=== PATIENT | female | born 1930 | race American Indian/Alaskan Native ===

== ENCOUNTER 2017-07-01 09:49 | Emergency (ER) | payer MEDICARE ==
[2017-07-01 10:36] VITALS: BP 121/59
--- NOTE | 2017-07-01 10:56 | Emergency Department Report ---
ED General Adult HPI - General Chief complaint: Back Pain/Injury Stated complaint: LEFT SIDED PAIN Time Seen by Provider: 07/01/17 10:40 Source: patient, EMS Mode of arrival: Stretcher Limitations: Physical Limitation - History of Present Illness Initial comments: A 87-year-old female here for evaluation of left-sided chest pain and in the abdomen she thinks it also goes into her pelvis. Patient is poor historian and family unavailable for interview patient apparently came in for a pain to the left chest into the back into the lower abdomen she denies any nausea vomiting denies any fever questionable shortness of breath no other complaints she is having a little bit of left-sided back pain denies headache denies stiff neck denies fever no Numbness Weakness or Tingling, She Is Alert and Oriented and Verbal but Is Unable to Give Any Further History She Denies Any Trauma Denies Any Syncope. -: Gradual, days(s) Location: chest, abdomen, left Radiation: non-radiation Severity scale (0 -10): 10 Quality: sharp Consistency: intermittent Worsens with: none Associated Symptoms: denies other symptoms. denies: diaphoresis, fever/chills, headaches, loss of appetite, malaise, nausea/vomiting, rash, seizure, shortness of breath, syncope, weakness - Related Data Home Medications Medication Instructions Recorded Confirmed Last Taken ALPRAZolam [Xanax TAB] 2 mg PO QID PRN 06/25/16 06/25/16 06/24/16 21:00 Aricept 10 mg PO HS 06/25/16 06/25/16 06/24/16 21:00 Levothyroxine [Synthroid] 75 mcg PO QAM 06/25/16 06/25/16 06/25/16 06:37 Nortriptyline [Pamelor] 25 mg PO BID 06/25/16 06/25/16 06/25/16 09:00 Previous Rx's Medication Instructions Recorded Last Taken Type Benzonatate [Tessalon Perles] 100 mg PO Q8HR #20 capsule 06/27/16 Unknown Rx HYDROcodone/APAP 10-325 [[place] 1 each PO QID PRN #30 tablet 06/27/16 Unknown Rx 10-325 mg TAB] Ipratropium/Albuter (Nf) 2 puff IH QID #1 inha 06/27/16 Unknown Rx [Combivent (Nf)] Levofloxacin [Levaquin] 750 mg PO QDAY #4 tablet 06/27/16 Unknown Rx Lisinopril [Zestril TAB] 20 mg PO DAILY #60 tablet 06/27/16 Unknown Rx amLODIPine [Norvasc] 10 mg PO DAILY #30 tablet 06/27/16 Unknown Rx guaiFENesin/CODEINE [Robitussin AC] 10 ml PO Q4H PRN #1 bottle 06/27/16 Unknown Rx Ipratropium/Albuterol Sulfate 1 ampul IH Q8HR #90 ampul.neb 06/29/16 Unknown Rx [Duoneb 0.5 mg-3 mg/3 ml Soln] Ondansetron [Zofran Odt] 4 mg PO TID PRN #15 tab.rapdis 07/01/17 Unknown Rx Allergies Allergy/AdvReac Type Severity Reaction Status Date / Time codeine Allergy Rash Verified 10/21/13 09:50 morphine Allergy Rash Verified 10/21/13 09:50 Penicillins Allergy Rash Verified 10/21/13 09:50 Sulfa (Sulfonamide Allergy Rash Verified 10/21/13 09:50 Antibiotics) acetaminophen [From Tylenol] AdvReac Itching Verified 06/25/16 16:46 ED Review of Systems ROS: Stated complaint: LEFT SIDED PAIN Other details as noted in HPI Comment: All other systems reviewed and negative Constitutional: denies: diaphoresis, fever, malaise ENT: denies: dental pain, hearing loss, epistaxis Respiratory: denies: cough, orthopnea, shortness of breath, stridor, wheezing Cardiovascular: denies: palpitations, orthopnea, edema, syncope, paroxysmal nocturnal dyspnea Gastrointestinal: abdominal pain. denies: nausea, vomiting, diarrhea, constipation, hematemesis, melena, hematochezia Genitourinary: denies: hematuria, discharge Skin: denies: change in color, pruritus Neurological: denies: numbness, paresthesias, confusion, abnormal gait, vertigo ED Past Medical Hx - Past Medical History Hx Hypertension: Yes Additional medical history: hypothyroidism - Surgical History Additional Surgical History: bilat knee replacement. Rotator cuff repair. - Social History Smoking Status: Never Smoker - Medications Home Medications: Home Medications Medication Instructions Recorded Confirmed Last Taken Type ALPRAZolam [Xanax TAB] 2 mg PO QID PRN 06/25/16 06/25/16 06/24/16 21:00 History Aricept 10 mg PO HS 06/25/16 06/25/16 06/24/16 21:00 History Levothyroxine [Synthroid] 75 mcg PO QAM 06/25/16 06/25/16 06/25/16 06:37 History Nortriptyline [Pamelor] 25 mg PO BID 06/25/16 06/25/16 06/25/16 09:00 History Benzonatate [Tessalon Perles] 100 mg PO Q8HR #20 capsule 06/27/16 Unknown Rx HYDROcodone/APAP 10-325 [[place] 1 each PO QID PRN #30 tablet 06/27/16 Unknown Rx 10-325 mg TAB] Ipratropium/Albuter (Nf) 2 puff IH QID #1 inha 06/27/16 Unknown Rx [Combivent (Nf)] Levofloxacin [Levaquin] 750 mg PO QDAY #4 tablet 06/27/16 Unknown Rx Lisinopril [Zestril TAB] 20 mg PO DAILY #60 tablet 06/27/16 Unknown Rx amLODIPine [Norvasc] 10 mg PO DAILY #30 tablet 06/27/16 Unknown Rx guaiFENesin/CODEINE [Robitussin AC] 10 ml PO Q4H PRN #1 bottle 06/27/16 Unknown Rx Ipratropium/Albuterol Sulfate 1 ampul IH Q8HR #90 ampul.neb 06/29/16 Unknown Rx [Duoneb 0.5 mg-3 mg/3 ml Soln] Ondansetron [Zofran Odt] 4 mg PO TID PRN #15 tab.rapdis 07/01/17 Unknown Rx ED Physical Exam - General Limitations: Physical Limitation General appearance: alert, in no apparent distress - Head Head exam: Present: atraumatic, normocephalic - Eye Eye exam: Present: normal appearance, PERRL, EOMI - ENT ENT exam: Present: normal exam, normal orophraynx - Neck Neck exam: Present: normal inspection. Absent: tenderness, meningismus, full ROM, lymphadenopathy, thyromegaly - Respiratory Respiratory exam: Present: normal lung sounds bilaterally. Absent: respiratory distress, wheezes, rales, rhonchi, stridor, chest wall tenderness, accessory muscle use, decreased breath sounds, prolonged expiratory - Cardiovascular Cardiovascular Exam: Present: regular rate, normal rhythm, normal heart sounds - GI/Abdominal GI/Abdominal exam: Present: soft. Absent: distended, tenderness, guarding, rebound, rigid, mass, bruit, pulsatile mass - Extremities Exam Extremities exam: Present: normal inspection, normal capillary refill. Absent: tenderness, pedal edema, joint swelling, calf tenderness - Back Exam Back exam: Present: normal inspection, muscle spasm. Absent: vertebral tenderness - Neurological Exam Neurological exam: Present: alert, oriented X3, CN II-XII intact. Absent: motor sensory deficit ED Course Vital Signs 07/01/17 07/01/17 10:35 10:40 Temperature 97.5 F L Pulse Rate 75 Respiratory 19 19 Rate Blood Pressure 121/59 [Left] O2 Sat by Pulse 100 97 Oximetry - Reevaluation(s) Reevaluation #1: 07/01/17 14:09 Patient was sent to CT for further evaluation of chest pain and abdominal pain of her studies and urinalysis were obtained she is allergic to Tylenol however family relates that she takes [place] and Dilaudid at home ED Medical Decision Making - Lab Data Result diagrams: 07/01/17 10:55 07/01/17 11:01 - EKG Data -: EKG Interpreted by Me EKG shows normal: sinus rhythm, ST-T waves (no acuteST-T changes no evidence of ischemia) - Radiology Data Radiology results: report reviewed - Medical Decision Making Laboratory studies were negative TROPONIN CBC AND CHEMISTRY WERE UNREMARKABLE. URINALYSIS WAS ALSO NEGATIVE. CT ABDOMEN AND PELVIS AND CHEST DOES SHOW CHRONIC CHANGEw. atx and poss pulm htn but no pe or dissection, ekg no evidence ischemia and neg trop, SHE DOES HAVE A KIDNEY STONE (NO EVIDENCE OF PE OR DISSECTION) (SYMPTOMS ARE CONSISTENT WITH CHEST WALL PAIN AND POSSIBLE RENAL COLIC SHE IS SO FAR PAin free FOLLOW-UP SHE IS TOLERATING BY MOUTH SHE DOES HAVE PAIN MEDICINE AT HOME SHE WILL NEED SERIAL REGULAR DOCTOR IN 2 DAYS. WORSE Critical care attestation.: If time is entered above; I have spent that time in minutes in the direct care of this critically ill patient, excluding procedure time. ED Disposition Clinical Impression: Atypical chest pain, Chest wall pain, Kidney stone on left side Disposition: - TO HOME OR SELFCARE Is pt being admited?: No Condition: Stable Instructions: Chest Pain (ED), Kidney Stones (ED) Additional Instructions: Return immediately if new or alarming symptoms see your doctor in 2 days Take the medicine as directed take your pain medicine that she has at home Prescriptions: Ondansetron [Zofran Odt] 4 mg PO TID PRN #15 tab.rapdis PRN Reason: Vomiting Referrals: HARVEY MCQUEEN MD [Primary Care Provider] - 3-5 Days Time of Disposition: 14:16
[2017-07-01 11:17] LABS: Basophils % (Auto) 0.8 % (0.0-1.8); Hematocrit 41.9 % (30.3-42.9); Hemoglobin 13.7 gm/dl (10.1-14.3); Mean Corpuscular HGB Conc 33 % (30-34); Mean Corpuscular Hemoglobin 29 pg (28-32); Mean Corpuscular Volume 90 fl (79-97); Platelet Count 227 K/mm3 (140-440); Red Blood Count 4.68 M/mm3 (3.65-5.03); Red Cell Distribution Width 14.1 % (13.2-15.2)
[2017-07-01 11:31] LABS: Alanine Aminotransferase 8 units/L (7-56); Albumin 3.5 g/dL (3.9-5); Albumin/Globulin Ratio 1.2 %; Alkaline Phosphatase 105 units/L (35-129); Anion Gap 15 mmol/L; BUN/Creatinine Ratio 15; Blood Urea Nitrogen 12 mg/dL (7-17); Calcium 9.4 mg/dL (8.4-10.2); Carbon Dioxide 32 mmol/L (22-30); Chloride 99.5 mmol/L (98-107); Glucose 115 mg/dL (65-100); Potassium 3.5 mmol/L (3.6-5.0); Sodium 143 mmol/L (137-145); Total Protein 6.5 g/dL (6.3-8.2)
--- NOTE | 2017-07-01 12:38 | Cat Scan Report ---
FINAL REPORT EXAM: CT ABDOMEN PELVIS WO CON HISTORY: l side chest/abd pain TECHNIQUE: CT of the abdomen and pelvis without IV contrast. Coronal and sagittal reconstructed imaging provided. PRIORS: None currently available. FINDINGS: ABDOMEN: Chest findings discussed on the CT chest. Liver, stomach, pancreas, spleen, and adrenals are unremarkable. Layering density within the gallbladder may represent stones and or sludge. No wall thickening. Kidneys: Right kidney is unremarkable. No hydronephrosis. No nephroureteral stones. No obvious lesion. Left renal cyst in the mid to inferior pole measures 3.7 cm. 3.9 x 6.8 mm stone in the mid left kidney. No left hydronephrosis. No ureteral stones. IVC is intact. Mild aortic atherosclerotic disease. No aneurysm. No periaortic or retroperitoneal mass or adenopathy. [id number] stool is present throughout the colon. Sigmoid diverticulosis. No wall thickening or inflammatory changes. Terminal ilium is unremarkable. Appendix is not clearly identified. No pericecal inflammatory changes. Small bowel loops are unremarkable. No obstructive pattern. No free air. No free fluid. PELVIS: Uterus is not clearly identified and may be surgically removed or atrophic. Bladder is unremarkable. No wall thickening or stone. There is no pelvic mass or adenopathy. Inguinal regions are unremarkable. Bones: No suspicious osseous lesions on this limited examination of the skeleton. Metastatic disease better evaluated with bone scan. Degenerative changes are in the spine. Bridging osseous structures in the spine may be related to diffuse idiopathic skeletal hyperostosis or ankylosing spondylitis. IMPRESSION: Subtle layering density within the gallbladder may represent stones or sludge. No CT evidence for cholecystitis. Left renal cyst. Nonobstructing left renal stone.
--- NOTE | 2017-07-01 12:41 | Cat Scan Report ---
FINAL REPORT EXAM: CT CHEST W CON HISTORY: l side chest pain TECHNIQUE: CT of chest with IV contrast. Coronal and sagittal reconstructed images provided. PRIORS: None currently available. FINDINGS: No pneumothorax. No effusion. No consolidation. No endobronchial lesion. Mild linear scarring or discoid subsegmental atelectasis in the dependent portion of both lungs. Prominent main pulmonary artery suggests pulmonary hypertension or pulmonary vascular congestion. No aortic aneurysm. Heart size unremarkable. No pericardial effusion. Patient appears to be status post left thyroidectomy. Enlarged heterogeneous right thyroid gland identified. Right thyroid lobe nodule suspected. There is no axillary adenopathy. There is no hilar or mediastinal mass or adenopathy. Images of the esophagus are unremarkable. Abdomen findings discussed on the CT abdomen and pelvis. No suspicious osseous lesions on this limited examination of the skeleton. Metastatic disease better evaluated with bone scan. Degenerative changes are present in the spine. No displaced fracture is evident. IMPRESSION: Minimal scarring or discoid subsegmental atelectasis in the dependent portion of both lungs. Mildly prominent main pulmonary artery may represent pulmonary hypertension or pulmonary vascular congestion. Pulmonary hypertension favor. Enlarged heterogeneous thyroid gland with nodules. Patient appears to be status post left thyroidectomy.
[2017-07-01 13:04] LABS: Bilirubin,Urine NEG (Negative); Blood,Urine NEG (Negative); Ketones,Urine NEG (Negative); Leukocyte Esterase,Urine NEG (Negative); Nitrite,Urine NEG (Negative); Protein,Urine <15 mg/dL mg/dL (Negative); RBC,Urine < 1.0 /HPF (0.0-6.0)
== END 2017-07-01 14:58 | disposition home or self-care (01) ==
LOC: ED 09:49
DX: R07.89 Other chest pain (principal); N20.0 Calculus of kidney; I10 Essential (primary) hypertension; E03.9 Hypothyroidism, unspecified; Z88.5 Allergy status to narcotic agent; Z88.0 Allergy status to penicillin; Z88.1 Allergy status to other antibiotic agents; Z88.2 Allergy status to sulfonamides
CPT/HCPCS: 36415; 71260; 74176; 80053; 81001; 83690; 84484; 85025; 93005; 93010; 99285; Q9967